=== PATIENT | male | born 1990 | race Caucasian/White ===

== ENCOUNTER 2016-07-22 20:51 | Emergency (ER) | payer OTHER ==
[~2016-07-22] VITALS: Ht 185.4 cm; Wt 70.5 kg
[2016-07-22 21:11] VITALS: BP 135/80; PULSE 63; RESP 18; O2SAT 98
--- NOTE | 2016-07-22 21:48 | DRSVH ---
PROCEDURE: X-RAY FINGERS, TWO VIEWS INDICATIONS: right hand 4th digit finger tip, hammer blow TECHNIQUE: AP hand, 2 views of the right fourth finger(s) acquired. COMPARISON: None. FINDINGS: Bones: No fractures or dislocations. No suspicious bony lesions. Soft tissues: No suspicious soft tissue calcifications. IMPRESSION: No fracture. No osseous lesion. If there are persistent symptoms or clinical suspicion f or pathology, then repeat radiographs or advanced imaging (CT, MRI or bone scan) should be considered for further evaluation. Dictated by: Landy Fraire MD, PhD on 07/22/2016 at 21:46 Approved by: Landy Fraire MD, PhD on 07/22/2016 at 21:47
[2016-07-22] MEDS ORDERED: _oxyCODONE/APAP 5-325 mg Tablet PO PRN (22:40)
--- NOTE | 2016-07-22 22:40 | ED.REPORT ---
HPI-Extremity Problem Upper Date of Service Jul 22, 2016 ED Provider: Jake Carias DO A healthy 26 year old male presents to the ED complaining of right phalangeal pain secondary to a crush injury that occurred prior to arrival. Patient was reportedly using a hammer and accidently crushed his right 4th finger. He noticed a small hematoma to the area but denies any numbness/tingling, weakness or throbbing around the area. Patient denies any other injuries at this time. Nursing Notes Stated Complaint: RIGHT FINGER INJURY/ L&1 Chief Complaint: Extremity Trauma Nursing Notes Reviewed: Yes Allergies: Coded Allergies: Sulfa (Sulfonamide Antibiotics) (Verified Allergy, Unknown, 07/22/16) bee venom protein (honey bee) (Verified Allergy, Unknown, 07/22/16) General Time Seen by MD: 22:35 Chief Complaint Finger injury right 4 Hx Obtained From: Patient Arrived By: Walk-in Onset Occurred: Just prior to arrival Symptom Duration: Since onset Caused by: Accidental, Crushing injury Location: : Finger right 4 Quality: Painful Severity: Current: Mild Severity: Maximum: Moderate Associated with: Denies: Numb extremities, Weakness Pertinent Negative: Pt denies other symptoms Recent Healthcare: No recent doctor visit, No recent hospitalization Past Medical History Past Medical History None reported. Past Surgical History None reported. Smoking History Unknown if Ever Smoker Social History Other Social History: Good social support, Local resident Ambulatory Status Independent Review of Systems Musculoskeletal: Reports: Joint pain (right finger), Joint swelling (right finger), Denies: Back pain, Extremity pain, Neck pain Neurologic: Denies: Change LOC, Numbness, Weakness Complete sys rev & neg: except as marked. Physical Exam Initial Vital Signs Vital Signs (First) Date Time Temp Pulse Resp B/P Pulse Ox O2 Delivery O2 Flow Rate FiO2 07/22/16 21:11 36.6 63 18 135/80 98 Room Air Initial VS: Reviewed Head / Eyes: Atraumatic, Normocephalic, PERRL Neck: Supple, Non-tender, Full range of motion Lower Extremities: Vascular intact, Neuro intact, No swelling, No tenderness Skin: Warm, Dry, No cyanosis Neurologic: Alert, Oriented, Nonfocal Psychiatric: Mood/affect normal, Behavior normal, Normal thought content General/Constitutional: Awake, Alert, No acute distress Respiratory / Chest: Atraumatic, No respiratory distress Upper Extremity / MS: Atraumatic, Inspection NL, Neurologic intact, Vascular intact Wrist / Hand: Atraumatic, Neurologic intact, Vascular intact (Good distal pulses ), Tendon function NL (No tendon injury ) Trauma / Burn / Environmental: Positive: Hematoma (Tenderness to the volar aspect of the 4th right digit with a small hematoma) Interpretation & Diagnostics X-Ray Interpretation Xray Interpretation: IMPRESSION: No fracture. No osseous lesion. If there are persistent symptoms or clinical suspicion for pathology, then repeat radiographs or advanced imaging (CT, MRI or bone scan) should be considered for further evaluation. Dictated by: Landy Fraire MD, PhD on 07/22/2016 at 21:46 X-Ray Ordered: Hand right Interpretation / Wet Read by: Interpret - Radiologist Re-Eval/Medical Decision Re-Evaluation/Progress : Time of Eval: 23:04 Patient Status: Condition improved Re-Evaluation/Progress Note: Patient is rechecked. He is informed of his X-ray results and diagnosis. All of the patient's questions are addressed. He understands and agrees with the treatment plan. Counseled Regarding: Diagnosis, Need for follow-up, When/why to return to ED Discharge & Departure Impression: Primary Impression: Crush injury of hand Encounter type: initial encounter Laterality: right Qualified Code: S67.21XA - Crushing injury of right hand, initial encounter Additional Impression: Subungual hematoma, fingernail Encounter type: initial encounter Qualified Code: S60.10XA - Contusion of unspecified finger with damage to nail, initial encounter Disposition: Home Discharge Condition All VS Reviewed: Yes Condition: Improved Patient Instructions: Subdural Hematoma (ED) Additional Instructions: Thank you for trusting us with your care this evening. Your examination is reassuring at this time. If you begin to experience any worsening pain, throbbing or worsening discoloration to the area please return to the emergency department. Please keep the splint in place for the next 5-7 days and see referral for the orthopedic doctor. Please take 1-2 Percocet* every 6-8 hours as needed for pain. *This medication is a narcotic and may cause drowsiness. Please do not drink, drive or use acetaminophen while on this medication. I recommend that you schedule a follow up appointment with your primary care physician in the next week for a recheck. Referrals: [facility] (PCP) [facility] Real Castanon MD Attestation Portions of this note were transcribed by Zhen Garcia. I, Dr. Carias personally performed the history, physical exam and medical decision-making; I reviewed and confirmed the accuracy of the information in the transcribed note. Signed by: Prashant Gilbert, 07/22/16 [id number]. Jake Carias DO Jul 22, 2016 22:40 ZHEN GARCIA Jul 22, 2016 22:48
[2016-07-22 22:49] VITALS: BP 137/72; PULSE 63; RESP 20; O2SAT 99
== END 2016-07-22 23:33 | disposition home or self-care (01) ==
LOC: SED 20:51
DX: S67.21XA Crushing injury of right hand, initial encounter (principal); S60.041A Contusion of right ring finger without damage to nail, initial encounter; W27.8XXA Contact with other nonpowered hand tool, initial encounter; Y93.89 Activity, other specified; Y92.69 Other specified industrial and construction area as the place of occurrence of the external cause; Y99.0 Civilian activity done for income or pay; Z88.2 Allergy status to sulfonamides